=== PATIENT | female | born 1965 | race Caucasian/White ===

== ENCOUNTER 2020-06-21 23:25 | Emergency (ER) | payer BC, OTHER ==
[2020-06-21 23:40] VITALS: BP 139/86; PULSE 100; TEMP 97.5; BMI 26.6
[2020-06-22] MEDS ORDERED: CEPHALEXIN MONOHYDRATE 500 MG CAPSULE (UD) PO ONE (00:25)
[2020-06-22] MEDS ORDERED: DIPHTH,PERTUSS(ACELL),TET 0.5 ML DISP.SYRIN IM ONE ×2 (00:26→00:39)
[2020-06-22] MEDS ORDERED: CEPHALEXIN MONOHYDRATE 500 MG CAPSULE (UD) ONE (00:39)
== END 2020-06-22 01:25 | disposition home or self-care (01) ==
LOC: JER 23:25
PROC: 3E0234Z Introduction of Serum, Toxoid and Vaccine into Muscle, Percutaneous Approach (ICD-10-PCS; principal; 2020-06-21)
DX: S61.213A Laceration without foreign body of left middle finger without damage to nail, initial encounter (principal)
CPT/HCPCS: 90715; 99284-25